=== PATIENT | male | born 1950 | race Caucasian/White ===

== ENCOUNTER 2018-08-12 16:40 | Inpatient (IN) | payer MEDICARE ==
--- NOTE | 2018-08-12 17:19 | ED ---
General Adult HPI - General Chief complaint: Psychiatric Symptoms Stated complaint: Petition Time Seen by Provider: 08/12/18 17:11 Source: patient, RN notes reviewed Mode of arrival: ambulatory Limitations: no limitations - History of Present Illness Initial comments: Patient is a pleasant 68-year-old male presenting to the emergency department with petition for mental health evaluation. Patient admits to playing with his brother recently and being depressed. Patient states symptoms have been for the past week. Patient does admit to leaving his of an on and attempt to harm himself. No history of previous self harm. No new physical complaints. No hallucinations. No homicidal thoughts. - Related Data Allergies Allergy/AdvReac Type Severity Reaction Status Date / Time No Known Allergies Allergy Verified 08/12/18 16:57 Review of Systems ROS Statement: Those systems with pertinent positive or pertinent negative responses have been documented in the HPI. ROS Other: All systems not noted in ROS Statement are negative. Constitutional: Denies: fever Eyes: Denies: eye pain ENT: Denies: ear pain Respiratory: Denies: cough Cardiovascular: Denies: chest pain Endocrine: Denies: fatigue Gastrointestinal: Denies: abdominal pain Genitourinary: Denies: dysuria Musculoskeletal: Denies: back pain Skin: Denies: rash Neurological: Denies: headache, confusion Past Medical History History of Any Multi-Drug Resistant Organisms: None Reported Past Psychological History: Anxiety, Bipolar, Depression, Schizophrenia Smoking Status: Current every day smoker Past Alcohol Use History: Daily Past Drug Use History: None Reported General Exam Limitations: no limitations General appearance: alert, in no apparent distress Head exam: Present: atraumatic Eye exam: Present: normal appearance, PERRL ENT exam: Present: normal oropharynx Neck exam: Present: normal inspection Respiratory exam: Present: normal lung sounds bilaterally Cardiovascular Exam: Present: irregular rhythm GI/Abdominal exam: Present: soft. Absent: tenderness Extremities exam: Present: normal inspection. Absent: pedal edema, calf tenderness Neurological exam: Present: alert Psychiatric exam: Present: depressed Skin exam: Present: normal color Course Vital Signs 08/12/18 16:55 Temperature 98.3 F Pulse Rate 77 Respiratory 18 Rate Blood Pressure 131/82 O2 Sat by Pulse 100 Oximetry EKG Findings - EKG Comments: EKG Findings:: A. fib with rate of 102. QRS 82. QT 352. QTC 458. Left axis. Inferior Q waves. No acute ST change. Medical Decision Making - Medical Decision Making Patient reevaluated and updated. Patient does have a history of atrial fibrillation previously, however that was at least 10 or 20 years ago and patient does not normally take medication for this. Secondary to this patient is felt to benefit from medical admission with psychiatric consult. Case was discussed in detail with Dr. Kuo, who is in agreement and will admit for hospital call. - Lab Data Result diagrams: 08/12/18 17:55 08/12/18 17:55 Lab Results 08/12/18 08/12/18 08/12/18 Range/Units 17:10 17:55 17:55 WBC 8.4 (3.8-10.6) k/uL RBC 4.51 (4.30-5.90) m/uL Hgb 13.5 (13.0-17.5) gm/dL Hct 41.2 (39.0-53.0) % MCV 91.3 (80.0-100.0) fL MCH 30.0 (25.0-35.0) pg MCHC 32.9 (31.0-37.0) g/dL RDW 15.1 (11.5-15.5) % Plt Count 154 (150-450) k/uL Neutrophils % 74 % Lymphocytes % 13 % Monocytes % 7 % Eosinophils % 3 % Basophils % 1 % Neutrophils # 6.3 (1.3-7.7) k/uL Lymphocytes # 1.1 (1.0-4.8) k/uL Monocytes # 0.6 (0-1.0) k/uL Eosinophils # 0.2 (0-0.7) k/uL Basophils # 0.1 (0-0.2) k/uL Carbon Monoxide, Quant (<10.0) % Sodium 134 L (137-145) mmol/L Potassium 3.9 (3.5-5.1) mmol/L Chloride 104 (98-107) mmol/L Carbon Dioxide 22 (22-30) mmol/L Anion Gap 8 mmol/L BUN 6 L (9-20) mg/dL Creatinine 0.63 L (0.66-1.25) mg/dL Est GFR (CKD-EPI)AfAm >90 (>60 ml/min/1.73 sqM) Est GFR (CKD-EPI)NonAf >90 (>60 ml/min/1.73 sqM) Glucose 117 H (74-99) mg/dL Calcium 9.3 (8.4-10.2) mg/dL Urine Color Light Yellow Urine Appearance Clear (Clear) Urine pH 6.5 (5.0-8.0) Ur Specific [place] 1.002 (1.001-1.035) Urine Protein Negative (Negative) Urine Glucose (UA) Negative (Negative) Urine Ketones Negative (Negative) Urine Blood Negative (Negative) Urine Nitrite Negative (Negative) Urine Bilirubin Negative (Negative) Urine Urobilinogen <2.0 (<2.0) mg/dL Ur Leukocyte Esterase Negative (Negative) Urine Opiates Screen Not Detected (NotDetected) Ur Oxycodone Screen Not Detected (NotDetected) Urine Methadone Screen Not Detected (NotDetected) Ur Propoxyphene Screen Not Detected (NotDetected) Ur Barbiturates Screen Not Detected (NotDetected) U Tricyclic Antidepress Not Detected (NotDetected) Ur Phencyclidine Scrn Not Detected (NotDetected) Ur Amphetamines Screen Not Detected (NotDetected) U Methamphetamines Scrn Not Detected (NotDetected) U Benzodiazepines Scrn Not Detected (NotDetected) Urine Cocaine Screen Not Detected (NotDetected) U Marijuana (THC) Screen Not Detected (NotDetected) Serum Alcohol <10 mg/dL 08/12/18 Range/Units 17:55 WBC (3.8-10.6) k/uL RBC (4.30-5.90) m/uL Hgb (13.0-17.5) gm/dL Hct (39.0-53.0) % MCV (80.0-100.0) fL MCH (25.0-35.0) pg MCHC (31.0-37.0) g/dL RDW (11.5-15.5) % Plt Count (150-450) k/uL Neutrophils % % Lymphocytes % % Monocytes % % Eosinophils % % Basophils % % Neutrophils # (1.3-7.7) k/uL Lymphocytes # (1.0-4.8) k/uL Monocytes # (0-1.0) k/uL Eosinophils # (0-0.7) k/uL Basophils # (0-0.2) k/uL Carbon Monoxide, Quant 5.7 (<10.0) % Sodium (137-145) mmol/L Potassium (3.5-5.1) mmol/L Chloride (98-107) mmol/L Carbon Dioxide (22-30) mmol/L Anion Gap mmol/L BUN (9-20) mg/dL Creatinine (0.66-1.25) mg/dL Est GFR (CKD-EPI)AfAm (>60 ml/min/1.73 sqM) Est GFR (CKD-EPI)NonAf (>60 ml/min/1.73 sqM) Glucose (74-99) mg/dL Calcium (8.4-10.2) mg/dL Urine Color Urine Appearance (Clear) Urine pH (5.0-8.0) Ur Specific [place] (1.001-1.035) Urine Protein (Negative) Urine Glucose (UA) (Negative) Urine Ketones (Negative) Urine Blood (Negative) Urine Nitrite (Negative) Urine Bilirubin (Negative) Urine Urobilinogen (<2.0) mg/dL Ur Leukocyte Esterase (Negative) Urine Opiates Screen (NotDetected) Ur Oxycodone Screen (NotDetected) Urine Methadone Screen (NotDetected) Ur Propoxyphene Screen (NotDetected) Ur Barbiturates Screen (NotDetected) U Tricyclic Antidepress (NotDetected) Ur Phencyclidine Scrn (NotDetected) Ur Amphetamines Screen (NotDetected) U Methamphetamines Scrn (NotDetected) U Benzodiazepines Scrn (NotDetected) Urine Cocaine Screen (NotDetected) U Marijuana (THC) Screen (NotDetected) Serum Alcohol mg/dL Disposition Clinical Impression: Atrial fibrillation with RVR, Depression Disposition: ADMITTED IP TO THIS HOSP Is patient prescribed a controlled substance at d/c from ED?: No Referrals: None,Stated [Primary Care Provider] - 1-2 days Decision Time: 19:32
[2018-08-12 17:20] LABS: Appearance,Urine Clear (Clear); Bilirubin,Urine Negative (Negative); Blood,Urine Negative (Negative); Color,Urine Light Yellow; Glucose,Urine (UA) Negative (Negative); Ketones,Urine Negative (Negative); Leukocyte Esterase,Urine Negative (Negative); Nitrite,Urine Negative (Negative); PH, Urine 6.5 (5.0-8.0); Protein,Urine Negative (Negative); Urobilinogen,Urine <2.0 mg/dL (<2.0)
[2018-08-12 17:37] LABS: Amphetamine Screen,Urine Not Detected (NotDetected); Barbiturate Screen,Urine Not Detected (NotDetected); Benzodiazepines Screen,Urine Not Detected (NotDetected); Cocaine Screen,Urine Not Detected (NotDetected); Methadone Screen, Urine Not Detected (NotDetected); Opiate Screen,Urine Not Detected (NotDetected); Oxycodone Screen, Urine Not Detected (NotDetected); Phencyclidine Screen,Urine Not Detected (NotDetected); Tricyclic Antidepressant,Urine Not Detected (NotDetected); Urn Cannabinoid Scrn Not Detected (NotDetected)
[2018-08-12 17:50] LABS: Specific Gravity,Urine 1.002 (1.001-1.035)
[2018-08-12 18:08] LABS: Basophils # (A) 0.1 k/uL (0-0.2); Basophils % (A) 1 %; Eosinophils # (A) 0.2 k/uL (0-0.7); Eosinophils % (A) 3 %; HCT 41.2 % (39.0-53.0); HGB 13.5 gm/dL (13.0-17.5); Lymphocytes # (A) 1.1 k/uL (1.0-4.8); Lymphocytes % (A) 13 %; MCHC 32.9 g/dL (31.0-37.0); MCV 91.3 fL (80.0-100.0); Mean Platelet Volume 7.5; Monocytes # (A) 0.6 k/uL (0-1.0); Monocytes % (A) 7 %; Neutrophils # (A) 6.3 k/uL (1.3-7.7); Neutrophils % (A) 74 %; Platelet Count 154 k/uL (150-450); RBC 4.51 m/uL (4.30-5.90); RDW 15.1 % (11.5-15.5); WBC 8.4 k/uL (3.8-10.6)
[2018-08-12 18:21] LABS: Alcohol <10 mg/dL; Anion Gap 8 mmol/L; Blood Urea Nitrogen 6 mg/dL (9-20); Calcium 9.3 mg/dL (8.4-10.2); Carbon Dioxide 22 mmol/L (22-30); Chloride 104 mmol/L (98-107); Glucose 117 mg/dL (74-99); Potassium 3.9 mmol/L (3.5-5.1); Sodium 134 mmol/L (137-145)
[2018-08-12] MEDS ORDERED: HEPARIN SODIUM,PORCINE 5,000 UNIT/ML 1 ML VIAL IV PRN (19:33)
[2018-08-12] MEDS ORDERED: ASPIRIN 81 MG PO STA (19:33)
[2018-08-12] MEDS ORDERED: HEPARIN SODIUM,PORCINE 5,000 UNIT/ML 1 ML VIAL IV ONE (19:33)
[2018-08-12] MEDS ORDERED: LORazepam 2 MG/ML INJ IV PRN ×4 (19:36)
[2018-08-12] MEDS ORDERED: HEPARIN SOD,PORK IN 0.45% NACL 25,000 UNIT in 0.45% NACL 1 250ML.BAG IV SCH (19:45)
--- NOTE | 2018-08-12 19:53 | XR ---
EXAMINATION TYPE: XR chest 2V DATE OF EXAM: 08/12/2018 COMPARISON: NONE HISTORY: Dysrhythmia, cough, and congestion TECHNIQUE: Frontal and lateral views of the chest are obtained. FINDINGS: Left midlung opacity in the anterior upper lobe on the lateral view is seen peripherally o n the frontal view suspicious for pneumonia. This is superimposed upon diffuse reticular interstitial prominence, likely interstitial lung disease and fibrosis. Cardiomediastinal silhouette is upper wing its normal size. Generalized osseous demineralization is noted. No sizable pneumothorax or pleural ef fusion. IMPRESSION: Findings suspicious for unifocal pneumonia superimposed upon interstitial lung disease/p ulmonary fibrosis.
[2018-08-12 20:00] LABS: Creatine Kinase 42 U/L (55-170)
[2018-08-12 20:12] LABS: Creatine Kinase MB 0.4 ng/mL (0.0-2.4); Troponin I <0.012 ng/mL (0.000-0.034)
[2018-08-12] MEDS ORDERED: METOPROLOL TARTRATE 25 MG TAB PO SCH (21:00)
--- NOTE | 2018-08-12 21:02 | ED ---
Medical Decision Making - Medical Decision Making Patient was seen by Dr. Kuo who felt comfortable with clearing the patient. He states there is no urgency for treatment for atrial fibrillation. He states patient can be treated with aspirin alone and follow-up for further evaluation. At this point patient will be medically clear for psychiatric evaluation. Recommend continuing azithromycin the next 5 days. Patient was seen by mental health services who will admit. - Lab Data Result diagrams: 08/12/18 17:55 08/12/18 17:55 Lab Results 08/12/18 08/12/18 08/12/18 Range/Units 17:10 17:55 17:55 WBC 8.4 (3.8-10.6) k/uL RBC 4.51 (4.30-5.90) m/uL Hgb 13.5 (13.0-17.5) gm/dL Hct 41.2 (39.0-53.0) % MCV 91.3 (80.0-100.0) fL MCH 30.0 (25.0-35.0) pg MCHC 32.9 (31.0-37.0) g/dL RDW 15.1 (11.5-15.5) % Plt Count 154 (150-450) k/uL Neutrophils % 74 % Lymphocytes % 13 % Monocytes % 7 % Eosinophils % 3 % Basophils % 1 % Neutrophils # 6.3 (1.3-7.7) k/uL Lymphocytes # 1.1 (1.0-4.8) k/uL Monocytes # 0.6 (0-1.0) k/uL Eosinophils # 0.2 (0-0.7) k/uL Basophils # 0.1 (0-0.2) k/uL APTT (22.0-30.0) sec Carbon Monoxide, Quant (<10.0) % Sodium 134 L (137-145) mmol/L Potassium 3.9 (3.5-5.1) mmol/L Chloride 104 (98-107) mmol/L Carbon Dioxide 22 (22-30) mmol/L Anion Gap 8 mmol/L BUN 6 L (9-20) mg/dL Creatinine 0.63 L (0.66-1.25) mg/dL Est GFR (CKD-EPI)AfAm >90 (>60 ml/min/1.73 sqM) Est GFR (CKD-EPI)NonAf >90 (>60 ml/min/1.73 sqM) Glucose 117 H (74-99) mg/dL Calcium 9.3 (8.4-10.2) mg/dL Magnesium (1.6-2.3) mg/dL Total Creatine Kinase (55-170) U/L CK-MB (CK-2) (0.0-2.4) ng/mL CK-MB (CK-2) Rel Index Troponin I (0.000-0.034) ng/mL Urine Color Light Yellow Urine Appearance Clear (Clear) Urine pH 6.5 (5.0-8.0) Ur Specific [place] 1.002 (1.001-1.035) Urine Protein Negative (Negative) Urine Glucose (UA) Negative (Negative) Urine Ketones Negative (Negative) Urine Blood Negative (Negative) Urine Nitrite Negative (Negative) Urine Bilirubin Negative (Negative) Urine Urobilinogen <2.0 (<2.0) mg/dL Ur Leukocyte Esterase Negative (Negative) Urine Opiates Screen Not Detected (NotDetected) Ur Oxycodone Screen Not Detected (NotDetected) Urine Methadone Screen Not Detected (NotDetected) Ur Propoxyphene Screen Not Detected (NotDetected) Ur Barbiturates Screen Not Detected (NotDetected) U Tricyclic Antidepress Not Detected (NotDetected) Ur Phencyclidine Scrn Not Detected (NotDetected) Ur Amphetamines Screen Not Detected (NotDetected) U Methamphetamines Scrn Not Detected (NotDetected) U Benzodiazepines Scrn Not Detected (NotDetected) Urine Cocaine Screen Not Detected (NotDetected) U Marijuana (THC) Screen Not Detected (NotDetected) Serum Alcohol <10 mg/dL 08/12/18 08/12/18 08/12/18 Range/Units 17:55 17:55 17:55 WBC (3.8-10.6) k/uL RBC (4.30-5.90) m/uL Hgb (13.0-17.5) gm/dL Hct (39.0-53.0) % MCV (80.0-100.0) fL MCH (25.0-35.0) pg MCHC (31.0-37.0) g/dL RDW (11.5-15.5) % Plt Count (150-450) k/uL Neutrophils % % Lymphocytes % % Monocytes % % Eosinophils % % Basophils % % Neutrophils # (1.3-7.7) k/uL Lymphocytes # (1.0-4.8) k/uL Monocytes # (0-1.0) k/uL Eosinophils # (0-0.7) k/uL Basophils # (0-0.2) k/uL APTT (22.0-30.0) sec Carbon Monoxide, Quant 5.7 (<10.0) % Sodium (137-145) mmol/L Potassium (3.5-5.1) mmol/L Chloride (98-107) mmol/L Carbon Dioxide (22-30) mmol/L Anion Gap mmol/L BUN (9-20) mg/dL Creatinine (0.66-1.25) mg/dL Est GFR (CKD-EPI)AfAm (>60 ml/min/1.73 sqM) Est GFR (CKD-EPI)NonAf (>60 ml/min/1.73 sqM) Glucose (74-99) mg/dL Calcium (8.4-10.2) mg/dL Magnesium 1.7 (1.6-2.3) mg/dL Total Creatine Kinase 42 L (55-170) U/L CK-MB (CK-2) 0.4 (0.0-2.4) ng/mL CK-MB (CK-2) Rel Index 1.0 Troponin I <0.012 (0.000-0.034) ng/mL Urine Color Urine Appearance (Clear) Urine pH (5.0-8.0) Ur Specific [place] (1.001-1.035) Urine Protein (Negative) Urine Glucose (UA) (Negative) Urine Ketones (Negative) Urine Blood (Negative) Urine Nitrite (Negative) Urine Bilirubin (Negative) Urine Urobilinogen (<2.0) mg/dL Ur Leukocyte Esterase (Negative) Urine Opiates Screen (NotDetected) Ur Oxycodone Screen (NotDetected) Urine Methadone Screen (NotDetected) Ur Propoxyphene Screen (NotDetected) Ur Barbiturates Screen (NotDetected) U Tricyclic Antidepress (NotDetected) Ur Phencyclidine Scrn (NotDetected) Ur Amphetamines Screen (NotDetected) U Methamphetamines Scrn (NotDetected) U Benzodiazepines Scrn (NotDetected) Urine Cocaine Screen (NotDetected) U Marijuana (THC) Screen (NotDetected) Serum Alcohol mg/dL 08/12/18 Range/Units 17:55 WBC (3.8-10.6) k/uL RBC (4.30-5.90) m/uL Hgb (13.0-17.5) gm/dL Hct (39.0-53.0) % MCV (80.0-100.0) fL MCH (25.0-35.0) pg MCHC (31.0-37.0) g/dL RDW (11.5-15.5) % Plt Count (150-450) k/uL Neutrophils % % Lymphocytes % % Monocytes % % Eosinophils % % Basophils % % Neutrophils # (1.3-7.7) k/uL Lymphocytes # (1.0-4.8) k/uL Monocytes # (0-1.0) k/uL Eosinophils # (0-0.7) k/uL Basophils # (0-0.2) k/uL APTT 23.6 (22.0-30.0) sec Carbon Monoxide, Quant (<10.0) % Sodium (137-145) mmol/L Potassium (3.5-5.1) mmol/L Chloride (98-107) mmol/L Carbon Dioxide (22-30) mmol/L Anion Gap mmol/L BUN (9-20) mg/dL Creatinine (0.66-1.25) mg/dL Est GFR (CKD-EPI)AfAm (>60 ml/min/1.73 sqM) Est GFR (CKD-EPI)NonAf (>60 ml/min/1.73 sqM) Glucose (74-99) mg/dL Calcium (8.4-10.2) mg/dL Magnesium (1.6-2.3) mg/dL Total Creatine Kinase (55-170) U/L CK-MB (CK-2) (0.0-2.4) ng/mL CK-MB (CK-2) Rel Index Troponin I (0.000-0.034) ng/mL Urine Color Urine Appearance (Clear) Urine pH (5.0-8.0) Ur Specific [place] (1.001-1.035) Urine Protein (Negative) Urine Glucose (UA) (Negative) Urine Ketones (Negative) Urine Blood (Negative) Urine Nitrite (Negative) Urine Bilirubin (Negative) Urine Urobilinogen (<2.0) mg/dL Ur Leukocyte Esterase (Negative) Urine Opiates Screen (NotDetected) Ur Oxycodone Screen (NotDetected) Urine Methadone Screen (NotDetected) Ur Propoxyphene Screen (NotDetected) Ur Barbiturates Screen (NotDetected) U Tricyclic Antidepress (NotDetected) Ur Phencyclidine Scrn (NotDetected) Ur Amphetamines Screen (NotDetected) U Methamphetamines Scrn (NotDetected) U Benzodiazepines Scrn (NotDetected) Urine Cocaine Screen (NotDetected) U Marijuana (THC) Screen (NotDetected) Serum Alcohol mg/dL - Radiology Data Radiology results: image reviewed (Chest x-ray does show concerning for pneumonia with interstitial lung disease.) Disposition Clinical Impression: Depression, Atrial fibrillation, Pneumonia Disposition: TRANSFER TO PSYCH HOSP/UNIT Is patient prescribed a controlled substance at d/c from ED?: No Referrals: None,Stated [Primary Care Provider] - 1-2 days
--- NOTE | 2018-08-12 21:27 | P.CONS ---
History of Present Illness - Reason for Consult Consult date: 08/12/18 afib Requesting physician: Brijesh Zuleta - Chief Complaint petitioned by family for mental health evaluation - History of Present Illness 68-year-old male with no significant past medical history. Patient presented to the hospital, petitioned by his family for mental health evaluation. Patient reports that he was having a core with his brother threatened to harm himself so he was brought in for suicidal ideation. He admits that he's been feeling down recently but otherwise denies any medical concerns or physical complaints. He admits to smoking at least a pack a day every day and drinking beer until he falls asleep at night where he averages 8- 12 beers every night. He currently denies any chest pain or trouble breathing denies any palpitations denies any dizziness lightheadedness denies any headache denies any chest pain denies any fevers or chills denies any coughing denies any abdominal pain nausea or vomiting denies any changes in his bowel habits or urinary habits. Upon further evaluation in the ER patient labs were pre-much unremarkable. His EKG showed A. fib with a rate of 100. He was asymptomatic and currently his heartrate is in the low 70s. Patient recalls a diagnosis of A. fib many years ago but he doesn't take any medications for that. And he denies any symptoms related to A. fib. Currently patient chads score is Zero there is no indication for anticoagulation for stroke prophylaxis at this point he would benefit from low-dose aspirin on daily basis, I also recommend that he follows up with his PCP/or cardiology as an outpatient for further recommendations, patient currently asymptomatic related to the A. fib and his A. fib is rate controlled without medications. He is clear from medical standpoint for admission to the mental health unit as EPS would see appropriate. I communicated these findings and recommendations to Dr. Zuleta in the ED. Review of Systems Pertinent positives as noted in HPI. All other systems were reviewed and are negative Past Medical History Additional Past Medical History / Comment(s): Patient recalls history of A. fib many years ago, patient also reports history of polyps in the colon from a colonoscopy years ago History of Any Multi-Drug Resistant Organisms: None Reported Past Psychological History: Anxiety, Bipolar, Depression, Schizophrenia Smoking Status: Current every day smoker Past Alcohol Use History: Daily, Heavy Past Drug Use History: None Reported - Past Family History Family Additional Family Medical History / Comment(s): Denies history of premature CAD Medications and Allergies Home Medications Medication Instructions Recorded Confirmed Type Cyanocobalamin [Vitamin B-12] 500 mcg PO DAILY 08/12/18 08/12/18 History Allergies Allergy/AdvReac Type Severity Reaction Status Date / Time No Known Allergies Allergy Verified 08/12/18 20:18 Physical Exam Vitals: Vital Signs Temp Pulse Resp BP Pulse Ox 08/12/18 20:54 98.0 F 74 15 135/75 98 08/12/18 16:55 98.3 F 77 18 131/82 100 Intake and Output 08/12/18 08/12/18 08/12/18 06:59 14:59 22:59 Other: Weight 52.163 kg Constitutional: No acute distress, conversant, pleasant Eyes: Anicteric sclerae, moist conjunctiva, no lid-lag Pupils equal round reactive to light ENMT: NC/AT Oropharynx clear, no erythema, exudates Neck: Supple, FROM, no masses, or JVD No carotid bruits No thyromegaly Lungs: Clear to auscultation Clear to percussion Normal respiratory effort, no accessory muscle use Cardiovascular: Heart irregular No murmurs, gallops, or rubs No peripheral edema Abdominal: Soft Nontender, no guarding, rebound or rigidity Abdomen moving with respiration Normoactive bowel sounds No hepatomegaly, No splenomegaly No palpable mass No abdominal wall hernia noted Skin: Normal temperature, tone, texture, turgor No induration No subcutaneous nodules No rash, lesions No ulcers Extremities: No digital cyanosis No clubbing Pedal pulses intact and symmetrical Radial pulses intact and symmetrical No calf tenderness Psychiatric: Alert and oriented to person, place and time Appropriate affect fair judgment Neuro Muscles Strength 5/5 in all 4 extremities Sensation to light touch grossly present throughout Cranial nerves II-XII grossly intact No focal sensory deficits Lymphatics: no palpable cervical or supraclavicular , or inguinal lymph nodes Results CBC & Chem 7: 08/12/18 17:55 08/12/18 17:55 Labs: Abnormal Lab Results - Last 24 Hours (Table) 08/12/18 08/12/18 Range/Units 17:55 17:55 Sodium 134 L (137-145) mmol/L BUN 6 L (9-20) mg/dL Creatinine 0.63 L (0.66-1.25) mg/dL Glucose 117 H (74-99) mg/dL Total Creatine Kinase 42 L (55-170) U/L Assessment and Plan Assessment: Upon further evaluation in the ER patient labs were pre-much unremarkable. His EKG showed A. fib with a rate of 100. He was asymptomatic and currently his heartrate is in the low 70s. Patient recalls a diagnosis of A. fib many years ago but he doesn't take any medications for that. And he denies any symptoms related to A. fib. Currently patient chads score is Zero there is no indication for anticoagulation for stroke prophylaxis at this point he would benefit from low-dose aspirin on daily basis, I also recommend that he follows up with his PCP/or cardiology as an outpatient for further recommendations, patient currently asymptomatic related to the A. fib and his A. fib is rate controlled without medications. He is clear from medical standpoint for admission to the mental health unit as EPS would see appropriate. I communicated these findings and recommendations to Dr. Zuleta in the ED. Plan: Suicidal ideation Depressed mood Evaluation by EPS/psychiatry is pending Family petitioned the patient for mental health evaluation Chronic/or paroxysmal A. fib currently rate controlled without medications, chads score is 0 no indication for anticoagulation at this point Patient is asymptomatic Patient would benefit from low-dose aspirin at this point I recommend outpatient workup by PCP or cardiology for further recommendations, he would also benefit from thyroid testing, an echocardiogram to name a few as an outpatient Patient reports that he was told that he had A. fib many years ago but he doesn't take any medications for that Heavy alcohol abuse Current alcohol level is negative Patient counseled regarding alcohol abuse and the need for cutting back and cessation of alcohol to be done safely after being discussed with his PCP due to the chronicity of the problem and the risk of withdrawal Tobacco smoking Patient counseled to quit smoking History of polyps in the colon many years ago I recommended the patient to follow-up on colonoscopy as an outpatient Patient is cleared from medical standpoint to be evaluated by mental health unit for further recommendations
[2018-08-12] MEDS ORDERED: AZITHROMYCIN 500 MG TAB PO STA ×2 (22:08→22:10)
[2018-08-12] MEDS ORDERED: cefTRIAXone IN SWFI 1,000 MG/10 ML SYRINGE IVP STA (22:08)
[2018-08-12] MEDS: THIAMINE 100 MG TAB PO SCH (23:40)
[2018-08-13] MEDS ORDERED: MAGNESIUM HYDROXIDE 2,400 MG/10 ML CUP PO PRN (00:07)
[2018-08-13] MEDS ORDERED: ACETAMINOPHEN TAB 325 MG TAB PO PRN (00:07)
[2018-08-13] MEDS ORDERED: LORazepam 1 MG TAB PO PRN (00:07)
[2018-08-13] MEDS ORDERED: MAG HYDROX/AL HYDROX/SIMETH 30 ML CUP PO PRN (00:07)
[2018-08-13] MEDS ORDERED: LORazepam 2 MG/ML INJ IM PRN (00:12)
[2018-08-13] MEDS: ASPIRIN 325 MG TAB PO SCH (08:40)
[2018-08-13] MEDS: NICOTINE 21MG/24HR PATCH TRANSDERM SCH (08:40)
--- NOTE | 2018-08-13 08:40 | P.MDCNMH ---
History of Present Illness H&P Date: 08/13/18 Chief Complaint: Medical evaluation, A. fib 68-year-old male with no significant past medical history. Patient recalls that remotely he was told he has A. fib Patient presented to the hospital, petitioned by his family for mental health evaluation. Patient reports that he was having a core with his brother threatened to harm himself so he was brought in for suicidal ideation. He admits that he's been feeling down recently but otherwise denies any medical concerns or physical complaints. He admits to smoking at least a pack a day every day and drinking beer until he falls asleep at night where he averages 8- 12 beers every night. He currently denies any chest pain or trouble breathing he denies any fevers or chills or coughing, denies any palpitations denies any dizziness lightheadedness denies any headache denies any chest pain denies denies any abdominal pain nausea or vomiting denies any changes in his bowel habits or urinary habits. Upon further evaluation in the ER patient labs were pretty much unremarkable. His EKG showed A. fib with a rate of 100. He was asymptomatic and currently his heart rate is in the low 70s. Patient recalls a diagnosis of A. fib many years ago but he doesn't take any medications for that. And he denies any symptoms related to A. fib. He denies any palpitations, dizziness, lightheadedness, or syncope. Currently patient chads score is Zero there is no indication for anticoagulation for stroke prophylaxis at this point he would benefit from low- dose aspirin on daily basis, I also recommend that he follows up with his PCP/or cardiology as an outpatient for further recommendations and possibly obtaining echocardiogram, patient currently asymptomatic related to the A. fib and his A. fib is rate controlled without medications. He is clear from medical standpoint for admission to the mental health unit as EPS would see appropriate. Review of Systems Pertinent positives as noted in HPI. All other systems were reviewed and are negative Past Medical History Past Medical History: Atrial Fibrillation Additional Past Medical History / Comment(s): Patient recalls history of A. fib many years ago, patient also reports history of polyps in the colon from a colonoscopy years ago History of Any Multi-Drug Resistant Organisms: None Reported Past Surgical History: No Surgical Hx Reported Past Anesthesia/Blood Transfusion Reactions: No Reported Reaction Past Psychological History: Anxiety, Bipolar, Depression, Schizophrenia Smoking Status: Current every day smoker Past Alcohol Use History: Daily, Heavy Additional Past Alcohol Use History / Comment(s): Pt. admits that he drinks alcohol hourly. However, he told this expert medical writer in the ER during EPS evaluation that he only drinks one beer a day. Past Drug Use History: Cocaine, Heroin, Marijuana, Methamphetamine, Opiates Additional Drug Use History / Comment(s): Pt. admits to a history of polysubstance use. - Past Family History Family Family Medical History: No Reported History Additional Family Medical History / Comment(s): Denies history of premature CAD Medications and Allergies Home Medications Medication Instructions Recorded Confirmed Type Cyanocobalamin [Vitamin B-12] 500 mcg PO DAILY 08/12/18 08/12/18 History Allergies Allergy/AdvReac Type Severity Reaction Status Date / Time No Known Allergies Allergy Verified 08/13/18 03:01 Physical Exam Vitals: Vital Signs Temp Pulse Pulse Resp BP BP Pulse Ox 08/13/18 03:11 97.8 F 88 16 109/66 95 08/12/18 23:43 98.0 F 72 16 141/86 99 08/12/18 20:54 98.0 F 74 15 135/75 98 08/12/18 16:55 98.3 F 77 18 131/82 100 Intake and Output 08/12/18 08/13/18 08/13/18 21:59 06:59 14:59 Intake Total Balance Intake: Amount of Fluid Infused ( ml) Other: Weight Constitutional: No acute distress, conversant, pleasant Eyes: Anicteric sclerae, moist conjunctiva, no lid-lag Pupils equal round reactive to light ENMT: NC/AT Oropharynx clear, no erythema, exudates Neck: Supple, FROM, no masses, or JVD No carotid bruits No thyromegaly Lungs: Clear to auscultation Clear to percussion Normal respiratory effort, no accessory muscle use Cardiovascular: Heart irregular No murmurs, gallops, or rubs No peripheral edema Abdominal: Soft Nontender, no guarding, rebound or rigidity Abdomen moving with respiration Normoactive bowel sounds No hepatomegaly, No splenomegaly No palpable mass No abdominal wall hernia noted Skin: Normal temperature, tone, texture, turgor No induration No subcutaneous nodules No rash, lesions No ulcers Extremities: No digital cyanosis No clubbing Pedal pulses intact and symmetrical Radial pulses intact and symmetrical No calf tenderness Psychiatric: Alert and oriented to person, place and time Appropriate affect fair judgment Neuro Muscles Strength 5/5 in all 4 extremities Sensation to light touch grossly present throughout Cranial nerves II-XII grossly intact No focal sensory deficits Lymphatics: no palpable cervical or supraclavicular , or inguinal lymph nodes Cranial Nerve Examination - Cranial Nerves Cranial Nerve II- Optic: Intact Cranial Nerve III- Oculomotor: Intact Cranial Nerve IV- Trochlear: Intact Cranial Nerve V- Trigeminal: Intact Cranial Nerve - Abducens: Intact Cranial Nerve VII- Facial: Intact Cranial Nerve VIII- Auditory: Intact Cranial Nerve IX- Glossopharyngeal: Intact Cranial Nerve X- Vagus: Intact Cranial Nerve XI- Accessory: Intact Cranial Nerve XII- Hypoglossal: Intact Results CBC & Chem 7: 08/12/18 17:55 08/12/18 17:55 Labs: Abnormal Lab Results - Last 24 Hours (Table) 08/12/18 08/12/18 Range/Units 17:55 17:55 Sodium 134 L (137-145) mmol/L BUN 6 L (9-20) mg/dL Creatinine 0.63 L (0.66-1.25) mg/dL Glucose 117 H (74-99) mg/dL Total Creatine Kinase 42 L (55-170) U/L Assessment and Plan Assessment: Upon further evaluation in the ER patient labs were pretty much unremarkable. His EKG showed A. fib with a rate of 100. He was asymptomatic and currently his heart rate is in the low 70s. Patient recalls a diagnosis of A. fib many years ago but he doesn't take any medications for that. And he denies any symptoms related to A. fib. He denies any palpitations, dizziness, lightheadedness, or syncope. Currently patient chads score is Zero there is no indication for anticoagulation for stroke prophylaxis at this point he would benefit from low- dose aspirin on daily basis, I also recommend that he follows up with his PCP/or cardiology as an outpatient for further recommendations and possibly obtaining echocardiogram, patient currently asymptomatic related to the A. fib and his A. fib is rate controlled without medications. He is clear from medical standpoint for admission to the mental health unit as EPS would see appropriate. Plan: Suicidal ideation Depressed mood Management per psych Family petitioned the patient for mental health evaluation Chronic/or paroxysmal A. fib currently rate controlled without medications, chads score is 0 no indication for anticoagulation at this point Patient is asymptomatic Patient would benefit from low-dose aspirin at this point I recommend outpatient workup by PCP or cardiology for further recommendations, he would also benefit from thyroid testing, an echocardiogram to name a few as an outpatient Patient reports that he was told that he had A. fib many years ago but he doesn 't take any medications for that Heavy alcohol abuse Current alcohol level is negative Patient counseled regarding alcohol abuse and the need for cutting back and cessation of alcohol to be done safely after being discussed with his PCP due to the chronicity of the problem and the risk of withdrawal CIWA for evaluation of withdrawal symptoms Tobacco smoking Patient counseled to quit smoking History of polyps in the colon many years ago I recommended the patient to follow-up on colonoscopy as an outpatient Thank you for allowing us to participate in the care of this patient. We will follow peripherally. Do not hesitate to contact us with questions. Someone can be reached from the [facility] hospitalist group at all hours of the day at [phone].
[2018-08-13] MEDS: MULTIVITAMINS, THERA 1 EACH TAB PO SCH (12:23)
[2018-08-13] MEDS: THIAMINE 100 MG TAB PO SCH ×2 (12:23→17:11)
[2018-08-13 15:30] VITALS: BMI 18.4
--- NOTE | 2018-08-13 16:10 | P.CRDCN ---
History of Present Illness Consult date: 08/13/18 History of present illness: This is a 68-year-old gentleman who was admitted to [facility] with a depression. We're asked to see the patient because of atrial fibrillation. Patient claims that he never had any major cardiac issues. He claims that he might have had irregular heart rhythm in the past. Doesn't follow with his regular child specialist. Denies any chest pain or shortness of breath. His lungs are clear. Heart is regular. No JVD. His EKG showed atrial fibrillation with mild fast ventricular response. I'm going to start in small dose of beta bl ocker and aspirin. We'll get an echocardiogram. If the LV function is normal, patient doesn't need anticoagulation therapy. Further recommended lipid upon clinical course Review of Systems As per the chart Past Medical History Past Medical History: Atrial Fibrillation Additional Past Medical History / Comment(s): Patient recalls history of A. fib many years ago, patient also reports history of polyps in the colon from a colonoscopy years ago History of Any Multi-Drug Resistant Organisms: None Reported Past Surgical History: No Surgical Hx Reported Past Anesthesia/Blood Transfusion Reactions: No Reported Reaction Past Psychological History: Anxiety, Bipolar, Depression, Schizophrenia Smoking Status: Current every day smoker Past Alcohol Use History: Daily, Heavy Additional Past Alcohol Use History / Comment(s): Pt. admits that he drinks alcohol hourly. However, he told this telegraphic typewriter repairer in the ER during EPS evaluation silvia t he only drinks one beer a day. Past Drug Use History: Cocaine, Heroin, Marijuana, Methamphetamine, Opiates Additional Drug Use History / Comment(s): Pt. admits to a history of polysubstance use. - Past Family History Family Family Medical History: No Reported History Additional Family Medical History / Comment(s): Denies history of premature CAD Medications and Allergies Home Medications Medication Instructions Recorded Confirmed Type Cyanocobalamin [Vitamin B-12] 500 mcg PO DAILY 08/12/18 08/12/18 History Allergies Allergy/AdvReac Type Severity Reaction Status Date / Time No Known Allergies Allergy Verified 08/13/18 03:01 Physical Exam Vitals: Vital Signs Temp Pulse Pulse Resp BP BP Pulse Ox 08/13/18 12:00 98 20 136/67 08/13/18 03:11 97.8 F 88 16 109/66 95 08/12/18 23:43 98.0 F 72 16 141/86 99 08/12/18 20:54 98.0 F 74 15 135/75 98 08/12/18 16:55 98.3 F 77 18 131/82 100 Intake and Output 08/13/18 08/13/18 08/13/18 06:59 14:59 22:59 Intake Total Balance Intake: Amount of Fluid Infused ( ml) Other: Weight 55 kg 55 kg GENERAL EXAM: Patient is alert and oriented and doesn't appear to be in any acute distress HEENT: Normocephalic. Normal reaction of pupils, equal size, normal range of extraocular motion. No erythema or exudates in the throat. NECK: No masses, no nuchal rigidity. CHEST: No chest wall deformity. LUNGS: Equal air entry with no crackles or wheeze. HEART: S1 and S2 normal with no audible mumurs or gallops. Regular rhythm, femorals equal on both sides.. ABDOMEN: No hepatosplenomegaly, normal bowel sounds, no guarding or rigidity. SKIN: No rashes CENTRAL NERVOUS SYSTEM: No focal deficits. EXTREMITIES: No cyanosis, clubbing or edema. Results 08/12/18 17:55 08/12/18 17:55 Cardiac Enzymes 08/12/18 Range/Units 17:55 CK-MB (CK-2) 0.4 (0.0-2.4) ng/mL Troponin I <0.012 (0.000-0.034) ng/mL Coagulation 08/12/18 Range/Units 17:55 APTT 23.6 (22.0-30.0) sec CBC 08/12/18 Range/Units 17:55 WBC 8.4 (3.8-10.6) k/uL RBC 4.51 (4.30-5.90) m/uL Hgb 13.5 (13.0-17.5) gm/dL Hct 41.2 (39.0-53.0) % Plt Count 154 (150-450) k/uL Comprehensive Metabolic Panel 08/12/18 Range/Units 17:55 Sodium 134 L (137-145) mmol/L Potassium 3.9 (3.5-5.1) mmol/L Chloride 104 (98-107) mmol/L Carbon Dioxide 22 (22-30) mmol/L BUN 6 L (9-20) mg/dL Creatinine 0.63 L (0.66-1.25) mg/dL Glucose 117 H (74-99) mg/dL Calcium 9.3 (8.4-10.2) mg/dL Current Medications Generic Name Dose Route Start Last Admin Trade Name Freq PRN Reason Stop Dose Admin Acetaminophen 650 mg 08/13/18 00:07 Tylenol Tab PO Q4HR PRN Pain/Discomfort Al Hydroxide/Mg Hydroxide 30 ml 08/13/18 00:07 Maalox PO Q4HR PRN GI Upset Aspirin 325 mg 08/13/18 09:00 08/13/18 08:40 Aspirin PO Not Given DAILY MIKE Lorazepam 1 mg 08/13/18 00:07 Ativan PO Q6HR PRN Alcohol Withdrawal Lorazepam 1 mg 08/13/18 00:12 Ativan IM Q6HR PRN Alcohol Withdrawal Magnesium Hydroxide 2,400 mg 08/13/18 00:07 Milk Of Magnesia PO DAILY PRN Constipation Metoprolol Tartrate 12.5 mg 08/13/18 21:00 Lopressor PO BID [facility] Multivitamins 1 each 08/13/18 12:00 08/13/18 12:23 Theragran PO 1 each DAILY@1200 MIKE Administration Nicotine 1 patch 08/13/18 09:00 08/13/18 08:40 Habitrol 21mg/24hr Patch TRANSDERM Not Given DAILY MIKE Thiamine HCl 100 mg 08/12/18 20:30 08/13/18 12:23 Vitamin B-1 PO 100 mg BID@1200,1700 MIKE Administration Intake and Output 08/13/18 08/13/18 08/13/18 06:59 14:59 22:59 Intake Total Balance Intake: Amount of Fluid Infused ( ml) Other: Weight 55 kg 55 kg Patient Weight 08/14/18 06:59 Weight 55 kg 08/12/18 17:55 08/12/18 17:55 EKG Interpretations (text) Atrial fibrillation with rapid ventricular response Assessment and Plan (1) Atrial fibrillation with RVR Current Visit: Yes Status: Acute Code(s): I48.91 - UNSPECIFIED ATRIAL FIBRILLATION SNOMED Code(s): 782745418789697 (2) Depression Current Visit: Yes Status: Acute Code(s): F32.9 - MAJOR DEPRESSIVE DISORDER, SINGLE EPISODE, UNSPECIFIED SNOMED Code(s): 51905139 Plan: I will add small dose of beta ivette and baby aspirin. Get an echocardiogram.
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
[2018-08-13] MEDS: METOPROLOL TARTRATE 12.5 MG TAB PO SCH (20:18)
[2018-08-14] MEDS: ASPIRIN 325 MG TAB PO SCH (08:16)
[2018-08-14] MEDS: NICOTINE 21MG/24HR PATCH TRANSDERM SCH (08:17)
[2018-08-14] MEDS: METOPROLOL TARTRATE 12.5 MG TAB PO SCH ×2 (08:17→21:28)
--- NOTE | 2018-08-14 12:09 | ECHOF ---
Referral Reason:A FIB MEASUREMENTS -------- HEIGHT: 172.7 cm WEIGHT: 54.9 kg BP: 126/65 RVIDd: 3.1 cm (< 3.3) IVSd: 1.0 cm (0.6 - 1.1) LVIDd: 5.0 cm (3.9 - 5.3) LVPWd: 1.0 cm (0.6 - 1.1) IVSs: 1.8 cm LVIDs: 3.5 cm LVPWs: 1.5 cm LA Diam: 3.8 cm (2.7 - 3.8) LAESV Index (A-L): 32.72 ml/m Ao Diam: 3.7 cm (2.0 - 3.7) AV Cusp: 2.1 cm (1.5 - 2.6) EPSS: 0.6 cm MV E Fxo: 0.45 m/s MV DecT: 193 ms MV A Fox: 0.56 m/s MV E/A Ratio: 0.81 AR PHT: 544 ms RAP: 5.00 mmHg RVSP: 29.32 mmHg MV EF SLOPE: 75.97 mm/s (70 - 150) MV EXCURSION: 1.89 cm (> 18.000) FINDINGS -------- Sinus rhythm. This was a technically adequate study. The left ventricular size is normal. Left ventricular wall thickness is normal. Overall left vent ricular systolic function is mildly impaired with, an EF between 45 - 50 %. The right ventricle is normal in size. LA is midly dilated 29-33ml/m2. The right atrium is normal in size. There is mild aortic valve sclerosis. There is mild aortic regurgitation. Mild mitral annular calcification present. Mild mitral regurgitation is present. Mild tricuspid regurgitation present. Right ventricular systolic pressure is normal at < 35 mmHg. There is no evidence of pulmonary hypertension. Trace/mild (physiologic) pulmonic regurgitation. The aortic root size is normal. Normal inferior vena cava with normal inspiratory collapse consistent with estimated right atrial pre ssure of 5 mmHg. There is no pericardial effusion. CONCLUSIONS -------- 1. Sinus rhythm. 2. This was a technically adequate study. 3. The left ventricular size is normal. 4. Left ventricular wall thickness is normal. 5. Overall left ventricular systolic function is mildly impaired with, an EF between 45 - 50 %. 6. LA is midly dilated 29-33ml/m2. 7. There is mild aortic valve sclerosis. 8. There is mild aortic regurgitation. 9. Mild mitral annular calcification present. 10. Mild mitral regurgitation is present. 11. Mild tricuspid regurgitation present. 12. Right ventricular systolic pressure is normal at < 35 mmHg. 13. Trace/mild (physiologic) pulmonic regurgitation. 14. The aortic root size is normal. 15. Normal inferior vena cava with normal inspiratory collapse consistent with estimated right atrial pressure of 5 mmHg. 16. There is no pericardial effusion. ROD MACHINE OPERATOR: KRISTA Chaves
[2018-08-14] MEDS: MULTIVITAMINS, THERA 1 EACH TAB PO SCH (12:57)
[2018-08-14] MEDS: THIAMINE 100 MG TAB PO SCH ×2 (12:57→17:31)
[2018-08-14] MEDS ORDERED: flUPHENAZine 2.5 MG/ML (MDV) 10 ML VIAL IM PRN (13:52)
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
[2018-08-14] MEDS ORDERED: SERTRALINE 25 MG TAB PO SCH (21:00)
[2018-08-15 05:41] VITALS: TEMP 98.3
[2018-08-15] MEDS: ASPIRIN 325 MG TAB PO SCH (10:05)
[2018-08-15] MEDS: MULTIVITAMINS, THERA 1 EACH TAB PO SCH (10:05)
[2018-08-15] MEDS: NICOTINE 21MG/24HR PATCH TRANSDERM SCH (10:05)
[2018-08-15] MEDS: THIAMINE 100 MG TAB PO SCH ×2 (10:05→16:00)
[2018-08-15] MEDS: METOPROLOL TARTRATE 12.5 MG TAB PO SCH ×2 (10:05→20:41)
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
[2018-08-15] MEDS ORDERED: SERTRALINE 50 MG TAB PO SCH (21:00)
[2018-08-16] MEDS: ASPIRIN 325 MG TAB PO SCH (08:13)
[2018-08-16] MEDS: METOPROLOL TARTRATE 12.5 MG TAB PO SCH (08:13)
[2018-08-16 09:18] LABS: Glucose,Whole Blood 222 mg/dL (75-99)
[2018-08-16 09:55] VITALS: BP 140/64; PULSE 88; RESP 16
--- NOTE | 2018-08-17 13:47 | CDI ---
Documentation Clarification Form It appears that patient has chronic atrial fibrillation Date: 08/17/18 From: Lara Storm Ana Walton, Outside Residential [employer] Professional Hours-8:30 am & 5 pm Bill Admit Date: 08/13/2018 12:19:00 AM Patient Name: Quentin Cantu Visit Number: [id number] Discharge Date: 08/16/2018 9:21:00 AM ATTENTION: The Clinical Documentation Specialists (CDI) and [facility] Coding Staff appreciate your assistance in clarifying documentation. Please respond to the clarification below the line at the bottom and electronically sign. The CDI & [facility] Coding staff will review the response and follow-up if needed. Please note: Queries are made part of the Legal Health Record. If you have any questions, please contact the author of this message via ITS. Dr. Gen Aguayo Atrial Fibrillation is documented in the ED Note, your consult and Dr Sanchez's PN. History/Risk Factors: severe depressioni, suicidal EKG/telemetry: atrial fibrillation ventricular rate 102 Treatment: ASA, then added small dose of beta ivette In your professional opinion, can you please clarify the type of Atrial Fibrillation, if known? Chronic/Permanent Paroxysmal Persistent Other, please specify Unable to determine MTDD
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
== END 2018-08-16 09:21 | disposition short-term general hospital (02) | DRG 885 ==
LOC: EC 16:40 → UNDOADMIN 19:49 → 3SCARD 19:49 → UNDOADMIN 23:57 → 3MHU 23:57
PROVIDERS: ADMIT Psychiatry & Neurology Psychiatry; ATTEND Psychiatry & Neurology Psychiatry
DX: F32.2 Major depressive disorder, single episode, severe without psychotic features (principal); I63.9 Cerebral infarction, unspecified; R45.851 Suicidal ideations; F10.239 Alcohol dependence with withdrawal, unspecified; I48.2 Chronic atrial fibrillation; F41.9 Anxiety disorder, unspecified; F17.210 Nicotine dependence, cigarettes, uncomplicated; H91.90 Unspecified hearing loss, unspecified ear; Z79.899 Other long term (current) drug therapy; Z86.010 Personal history of colon polyps; Z91.19 Patient's noncompliance with other medical treatment and regimen
CPT/HCPCS: 36415; 71046; 80048; 80306; 80320; 81003; 82075; 82375; 82550; 82553; 83735; 84443; 84484; 85025; 85730; 93005; 93306; 96365; 96366; 96375; 96376; 99285

== ENCOUNTER 2018-08-16 09:31 | Emergency (ER) | payer MEDICARE ==
[2018-08-16] MEDS ORDERED: SODIUM CHLORIDE 0.9% 1,000 ML IV STA (09:42)
[2018-08-16 09:49] LABS: Glucose,Whole Blood 224 mg/dL (75-99)
--- NOTE | 2018-08-16 09:50 | ED ---
General Adult HPI - General Stated complaint: altered Time Seen by Provider: 08/16/18 09:31 Source: RN notes reviewed - History of Present Illness Initial comments: This is a 68-year-old male who presents emergency Department. Patient was on the mental health unit and he according to the report stood up became stiff felt the ground and hit his head. A team was called at 902. Patient was then inappropriately transferred against protocol to the emergency department without any report given to the physician or the nurse about the care of the patient. Patient was admitted to the mental health unit on August 12 and it was told us that the patient was an alcoholic and has not drank in 6 days. Patient is unable to give any history and there is no staff that came with the patient and no physician has called me to give me any report. Patient remains unresponsive - Related Data Home Medications Medication Instructions Recorded Confirmed Cyanocobalamin [Vitamin B-12] 500 mcg PO DAILY 08/12/18 08/16/18 Allergies Allergy/AdvReac Type Severity Reaction Status Date / Time No Known Allergies Allergy Verified 08/16/18 09:41 Review of Systems ROS Statement: Those systems with pertinent positive or pertinent negative responses have been documented in the HPI. ROS Other: All systems not noted in ROS Statement are negative. Past Medical History Past Medical History: Atrial Fibrillation Additional Past Medical History / Comment(s): Patient recalls history of A. fib many years ago, patient also reports history of polyps in the colon from a colonoscopy years ago History of Any Multi-Drug Resistant Organisms: None Reported Past Surgical History: No Surgical Hx Reported Past Anesthesia/Blood Transfusion Reactions: No Reported Reaction Past Psychological History: Anxiety, Bipolar, Depression, Schizophrenia Smoking Status: Current every day smoker Past Alcohol Use History: Daily, Heavy Additional Past Alcohol Use History / Comment(s): Pt. admits that he drinks alcohol hourly. However, he told this functional tester typewriters in the ER during EPS evaluation that he only drinks one beer a day. Past Drug Use History: Cocaine, Heroin, Marijuana, Methamphetamine, Opiates Additional Drug Use History / Comment(s): Pt. admits to a history of polysubstance use. - Past Family History Family Family Medical History: No Reported History Additional Family Medical History / Comment(s): Denies history of premature CAD General Exam - General Exam Comments Initial Comments: GENERAL: Patient is well-developed and well-nourished. ENT: Neck is soft and supple. No significant lymphadenopathy is noted. EYES: The sclera were anicteric and conjunctiva were pink and moist. Unable to test extraocular motion is pupils are reactive to light PULMONARY: Unlabored respirations. Good breath sounds bilaterally. No audible rales rhonchi or wheezing was noted. CARDIOVASCULAR: There is a regular rate and rhythm without any murmurs gallops or rubs. ABDOMEN: Soft and nontender with normal bowel sounds. SKIN: Skin is clear with no lesions or rashes and otherwise unremarkable. NEUROLOGIC: Patient is not alert but does respond to painful stimuli. Patient does not speak and cannot follow any directions so further neurologic assessment cannot be done but it does appear that the right side is flaccid. MUSCULOSKELETAL: Patient's right arm and leg appear flaccid. Patient has moved the left arm and left leg but I cannot assess strength. LYMPHATICS: No significant lymphadenopathy is noted PSYCHIATRIC: Unable to assess Course Vital Signs 08/16/18 08/16/18 08/16/18 09:39 10:15 10:41 Temperature 97.1 F L Pulse Rate 78 79 Respiratory 16 18 Rate Blood Pressure 131/78 129/76 133/79 O2 Sat by Pulse 96 100 Oximetry 08/16/18 08/16/18 08/16/18 10:55 11:24 11:45 Temperature Pulse Rate 78 80 88 Respiratory 18 18 Rate Blood Pressure 130/76 151/97 151/99 O2 Sat by Pulse 100 100 100 Oximetry 08/16/18 12:52 Temperature 97.1 F L Pulse Rate 88 Respiratory 18 Rate Blood Pressure 151/99 O2 Sat by Pulse 100 Oximetry Procedures - Intubation Sedative: Etomidate Mg Given: 20 Paralytic: Rocuronium Mg Given: 50 Laryngoscope: Acevedo Size: 3 ET Tube Size: 8 ET Tube Uncuffed: No Tube Secured Location: teeth Tube Placement Confirmation: visualized tube passing through cords, equal breath sounds bilaterally, no breath sounds over epigastrium, confirmation by capnometry Patient Tolerated Procedure: well Intubation Complications: none Medical Decision Making - Medical Decision Making EKG shows sinus rhythm with occasional PVC at 74 bpm WA interval is 202 QRS is 94 Q-T intervals 436 QTC is 483. Patient's EKG shows no ST segment elevation or depression Patient has a GCS of 10. Patient has an NIH greater than 30. Patient had a seizure in the emergency department received 1 mg of Ativan and thousand of Keppra. I spoke with the neurointerventionalist he was in agreement with transferring the patient Kiera Massey. I spoke with your doctor Kiera Massey they accepted transfer. At this point time patient is maintaining his airway and has a good gag reflex. CT of the C-spine shows a possible posterior endplate fracture per the radiologist. Patient's chest x-ray shows a left-sided pneumonia. This in combination with his preseizure GCS of only 10 and the fact that he got Ativan I thought it was safer to secure his airway so I intubated the patient. Transfer was delayed because of the intubation and follow-up x-ray. Chest x-ray postintubation showed good placement of ET tube - Lab Data Result diagrams: 08/16/18 09:41 08/16/18 09:41 Lab Results 08/16/18 08/16/18 08/16/18 Range/Units 09:39 09:41 09:41 WBC 5.9 (3.8-10.6) k/uL RBC 3.74 L (4.30-5.90) m/uL Hgb 10.9 L (13.0-17.5) gm/dL Hct 34.5 L (39.0-53.0) % MCV 92.2 (80.0-100.0) fL MCH 29.1 (25.0-35.0) pg MCHC 31.5 (31.0-37.0) g/dL RDW 15.1 (11.5-15.5) % Plt Count 161 (150-450) k/uL Neutrophils % 73 % Lymphocytes % 15 % Monocytes % 7 % Eosinophils % 2 % Basophils % 1 % Neutrophils # 4.4 (1.3-7.7) k/uL Lymphocytes # 0.9 L (1.0-4.8) k/uL Monocytes # 0.4 (0-1.0) k/uL Eosinophils # 0.1 (0-0.7) k/uL Basophils # 0.0 (0-0.2) k/uL PT (9.0-12.0) sec INR (<1.2) APTT (22.0-30.0) sec Sodium 133 L (137-145) mmol/L Potassium 4.0 (3.5-5.1) mmol/L Chloride 100 (98-107) mmol/L Carbon Dioxide 27 (22-30) mmol/L Anion Gap 6 mmol/L BUN 12 (9-20) mg/dL Creatinine 0.65 L (0.66-1.25) mg/dL Est GFR (CKD-EPI)AfAm >90 (>60 ml/min/1.73 sqM) Est GFR (CKD-EPI)NonAf >90 (>60 ml/min/1.73 sqM) Glucose 204 H (74-99) mg/dL POC Glucose (mg/dL) 224 H (75-99) mg/dL POC Glu [employer] ID Randall, Demario Plasma Lactic Acid Jerrod (0.7-2.0) mmol/L Calcium 8.6 (8.4-10.2) mg/dL Total Bilirubin 0.5 (0.2-1.3) mg/dL AST 92 H (17-59) U/L ALT 41 (21-72) U/L Alkaline Phosphatase 86 (38-126) U/L Troponin I (0.000-0.034) ng/mL Total Protein 6.1 L (6.3-8.2) g/dL Albumin 2.9 L (3.5-5.0) g/dL 08/16/18 08/16/18 08/16/18 Range/Units 09:41 09:41 11:17 WBC (3.8-10.6) k/uL RBC (4.30-5.90) m/uL Hgb (13.0-17.5) gm/dL Hct (39.0-53.0) % MCV (80.0-100.0) fL MCH (25.0-35.0) pg MCHC (31.0-37.0) g/dL RDW (11.5-15.5) % Plt Count (150-450) k/uL Neutrophils % % Lymphocytes % % Monocytes % % Eosinophils % % Basophils % % Neutrophils # (1.3-7.7) k/uL Lymphocytes # (1.0-4.8) k/uL Monocytes # (0-1.0) k/uL Eosinophils # (0-0.7) k/uL Basophils # (0-0.2) k/uL PT 10.3 (9.0-12.0) sec INR 1.0 (<1.2) APTT 22.6 (22.0-30.0) sec Sodium (137-145) mmol/L Potassium (3.5-5.1) mmol/L Chloride (98-107) mmol/L Carbon Dioxide (22-30) mmol/L Anion Gap mmol/L BUN (9-20) mg/dL Creatinine (0.66-1.25) mg/dL Est GFR (CKD-EPI)AfAm (>60 ml/min/1.73 sqM) Est GFR (CKD-EPI)NonAf (>60 ml/min/1.73 sqM) Glucose (74-99) mg/dL POC Glucose (mg/dL) (75-99) mg/dL POC Glu [employer]er ID Plasma Lactic Acid Jerrod 4.5 H* (0.7-2.0) mmol/L Calcium (8.4-10.2) mg/dL Total Bilirubin (0.2-1.3) mg/dL AST (17-59) U/L ALT (21-72) U/L Alkaline Phosphatase (38-126) U/L Troponin I 0.034 (0.000-0.034) ng/mL Total Protein (6.3-8.2) g/dL Albumin (3.5-5.0) g/dL Critical Care Time Critical Care Time: Yes Total Critical Care Time: 35 Disposition Clinical Impression: C7 cervical fracture, Subarachnoid hemorrhage, Epidural hemorrhage, Seizure, History of alcoholism, Pneumonia Disposition: OTHER INSTITUTION NOT DEFINED Condition: Serious Referrals: None,Stated [Primary Care Provider] - 1-2 days Time of Disposition: 10:22 - Out of Hospital Transfer - Req. Specs Out of Hospital Transfer - Requested Specifics: Other Emergency Center ([facility])
--- NOTE | 2018-08-16 10:07 | CT ---
EXAMINATION TYPE: CT brain wo con for TPA DATE OF EXAM: 08/16/2018 HISTORY: Right-sided weakness and deficits. Flaccid right side. CT DLP: 1705.8 mGycm. Automated Exposure Control for Dose Reduction was Utilized. TECHNIQUE: CT scan of the head is performed without contrast. COMPARISON: None. FINDINGS: There is moderate to large size right parietal occipital acute scalp hematoma. There is acu te left-sided subarachnoid hemorrhage filling the sulci in left frontal and temporal lobes. There is additional left extra-axial hemorrhage over the frontal lobe anteriorly probable small epidural hemor rhage measuring up to 7 mm in thickness coronal image 14. There is diffuse ventricular and sulcal pro minence consistent with diffuse age-related cerebral atrophy. There is low-attenuation in the perive ntricular white matter consistent with chronic small vessel ischemic change. The globes are intact b ilaterally. There is symmetric leftward gaze noted. The calvarium is intact. There is near complete opacification of the left sphenoid sinus with some hyperdense material suggesting possible hemorrhag e. No fracture is evident. Foci of air inferior right temporal lobe axial image 14 for reference with out calvarial fracture is seen of uncertain etiology. There is additional focus of air sellar/suprase llar level axial image 22. Calcified distal internal carotid arteries bilaterally are appreciated. IMPRESSION: There is background moderate diffuse age-related cerebral atrophy and moderate to advance d chronic small vessel ischemic change noted. There is moderate to large size right parietal occipit al acute scalp hematoma. There is small left extra-axial presumed epidural acute hemorrhage centered over the left frontal lobe. There is small to moderate-sized acute left subarachnoid hemorrhage invol ving frontal and temporal lobes. Pneumocephalus is seen near skull base without definitive skull frac ture visualized. Near complete opacification suspect hemorrhage into the left sphenoid sinus. Critical results of acute intracranial hemorrhage communicated to ordering ER physician via telephone at time of dictation.
[2018-08-16] MEDS ORDERED: levETIRAcetam IV 1,000 MG in SALINE 1 100ML.BAG IVPB STA (10:08)
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
[2018-08-16 10:09] VITALS: TEMP 97.1
[2018-08-16 10:10] LABS: Partial Thromboplastin Time 22.6 sec (22.0-30.0); Prothrombin Time 10.3 sec (9.0-12.0)
[2018-08-16 10:11] LABS: Basophils % (A) 1 %; Eosinophils # (A) 0.1 k/uL (0-0.7); Eosinophils % (A) 2 %; HCT 34.5 % (39.0-53.0); HGB 10.9 gm/dL (13.0-17.5); Lymphocytes # (A) 0.9 k/uL (1.0-4.8); Lymphocytes % (A) 15 %; MCH 29.1 pg (25.0-35.0); MCHC 31.5 g/dL (31.0-37.0); MCV 92.2 fL (80.0-100.0); Mean Platelet Volume 6.9; Monocytes # (A) 0.4 k/uL (0-1.0); Monocytes % (A) 7 %; Neutrophils # (A) 4.4 k/uL (1.3-7.7); Neutrophils % (A) 73 %; Platelet Count 161 k/uL (150-450); RBC 3.74 m/uL (4.30-5.90); RDW 15.1 % (11.5-15.5); WBC 5.9 k/uL (3.8-10.6)
[2018-08-16] MEDS: LORazepam 2 MG/ML INJ IV STA ×3 (10:20→12:11)
[2018-08-16] MEDS ORDERED: ETOMIDATE 2 MG/ML 10 ML VIAL IVP STA (10:20)
--- NOTE | 2018-08-16 10:23 | CT ---
EXAMINATION TYPE: CT cervical spine wo con DATE OF EXAM: 08/16/2018 COMPARISON: NONE HISTORY: Fall, altered mental status neck pain. CT DLP: 337 mGycm. Automated Exposure Control for Dose Reduction was Utilized. TECHNIQUE: CT scan of the cervical spine is obtained without contrast, axial images are obtained, sa gittal and coronal reformatted images are also reviewed. FINDINGS: Coronal images show dextroconvex scoliotic curvature positioning centered in the mid thorac ic spine. Cervical spine is visualized in its entirety from C1 through upper thoracic levels, demonst rates straightened alignment on sagittal images Prevertebral soft tissue appears within normal limits . The C1-C2 articulation is within normal limits on the coronal images. Vertebral body heights are maintained. There is moderate disc space narrowing and spurring C6-C7 leve l. There is lucent area in the superior C7 vertebra just right of midline (sagittal image 48 and tracey nal image 39) with more defined linear lucency posterior inferior to this seen best axial image 64 an d 65, there is extension to the superior and posterior endplates best identified. There is slight pos terior retropulsion of the superior C7 vertebra. There is however some additional posterior retropuls ion or probable spur from inferior C6 vertebra. There is additional mild disc space narrowing C5-C6 level. Posterior spur disc complex effaces anteri or thecal sac at C3-C4 level on sagittal images. Hemangioma transformation noted diffusely through th e T1 and T3 vertebra. Review of axial images shows bilateral uncovertebral facet degenerative changes C3-C4 level and left- sided C4-C5 level. Thyroid gland is normal in size. Visualized lungs show peripheral reticulation and fibrosis bilaterally suggesting possible underlying IPF, correlate clinically. IMPRESSION: Abnormal appearance to the superior C7 vertebrae in which acute nondisplaced fracture inv olving superior and posterior endplates cannot be excluded. Advised MRI follow-up especially given hi story of recent trauma.
[2018-08-16 10:28] LABS: ALT 41 U/L (21-72); AST 92 U/L (17-59); Albumin 2.9 g/dL (3.5-5.0); Alkaline Phosphatase 86 U/L (38-126); Anion Gap 6 mmol/L; Blood Urea Nitrogen 12 mg/dL (9-20); Calcium 8.6 mg/dL (8.4-10.2); Carbon Dioxide 27 mmol/L (22-30); Chloride 100 mmol/L (98-107); Glucose 204 mg/dL (74-99); Sodium 133 mmol/L (137-145); Total Bilirubin 0.5 mg/dL (0.2-1.3); Total Protein 6.1 g/dL (6.3-8.2)
[2018-08-16] MEDS ORDERED: PIPERACILLIN-TAZOBACTAM 3.375 GM in SODIUM CHLORIDE 0.9% 100 ML IVPB STA (10:45)
--- NOTE | 2018-08-16 10:46 | XR ---
EXAMINATION TYPE: XR chest 1V DATE OF EXAM: 08/16/2018 COMPARISON: 08/12/2018 HISTORY: Altered mental status TECHNIQUE: Single frontal view of the chest is obtained. FINDINGS: Left midlung opacity in the anterior upper lobe on the lateral view is seen peripherally o n the frontal view suspicious for pneumonia. This is superimposed upon diffuse reticular interstitial prominence, likely interstitial lung disease and fibrosis. Cardiomediastinal silhouette is upper wing its normal size. Generalized osseous demineralization is noted. No sizable pneumothorax or pleural ef fusion. IMPRESSION: Persistent interstitial pattern with more confluent left upper lobe consolidation. Likel y represents a area of infiltrate superimposed on a background of chronic interstitial lung disease o r pulmonary fibrosis.
[2018-08-16 10:50] VITALS: RESP 18
[2018-08-16] MEDS ORDERED: ROCURONIUM BROMIDE 10 MG/ML 10 ML VIAL IV STA (11:00)
--- NOTE | 2018-08-16 11:26 | XR ---
EXAMINATION TYPE: XR chest 1V portable DATE OF EXAM: 08/16/2018 COMPARISON: 08/16/2018 HISTORY: Tube placement TECHNIQUE: Single frontal view of the chest is obtained. FINDINGS: ET tube approximately 5.67 m above melvin. Coarsened interstitial pattern seen. Subsegment al consolidation left perihilar and lower lobe noted. There is suspicion for a pulmonary nodule in th e left upper lobe measuring 1.2 cm. IMPRESSION: 1. There persists a left perihilar and lower lobe area of infiltrate which could be related to aspira tion. Underlying pulmonary fibrosis noted. 2. There is suspicion for a 1.2 cm nodule in the left upper lobe. Short-term follow-up CT scan the est recommended.
[2018-08-16 11:53] VITALS: BP 151/99; PULSE 88
[2018-08-16] MEDS ORDERED: LORazepam 2 MG/ML INJ IV STA (12:08)
== END 2018-08-16 12:52 | disposition short-term general hospital (02) ==
LOC: EC 09:31
DX: S12.600A Unspecified displaced fracture of seventh cervical vertebra, initial encounter for closed fracture (principal); S06.4X9A Epidural hemorrhage with loss of consciousness of unspecified duration, initial encounter; S06.6X9A Traumatic subarachnoid hemorrhage with loss of consciousness of unspecified duration, initial encounter; J18.9 Pneumonia, unspecified organism; F10.21 Alcohol dependence, in remission; R56.9 Unspecified convulsions; R29.730 NIHSS score 30; R40.2422 Glasgow coma scale score 9-12, at arrival to emergency department; I49.3 Ventricular premature depolarization; F17.200 Nicotine dependence, unspecified, uncomplicated
CPT/HCPCS: 99291; 31500; 96365; 96367; 96375 ×2; 96376 ×2; 96361; 36415; 80053; 83605; 84484; 85025; 85610; 85730; 87040; 71045; 72125; 70450; J2543; J2060; J1953